=== PATIENT | male | born 1950 | race Caucasian/White ===

== ENCOUNTER → 2018-05-09 | Outpatient (CLI) | payer MEDICARE ==
[~2018-05-09] MED LIST: ALL300 PO; ENAL20TA99 PO; FAMO-122 PO; GEM600 PO; LABE100T28 PO; OMEP40CA45 PO
[2018-05-09 08:31] LABS: PLATELET COUNT, AUTOMATED 193 K/uL (150-450)
== END ==
LOC: LAB 07:55
PROVIDERS: ATTEND Internal Medicine Nephrology
DX: N18.3 Chronic kidney disease, stage 3 (moderate) (principal); I10 Essential (primary) hypertension
CPT/HCPCS: 36415; 82040; 82310; 82374; 82435; 82565; 82570; 82947; 84100; 84132; 84156; 84295; 84520; 85025

== ENCOUNTER → 2018-06-13 | Outpatient (CLI) | payer MEDICARE ==
--- NOTE | 2018-06-13 16:06 | RADIOLOGY IMAGING REPORT ---
FACILITY: [facility] PATIENT NAME: Oscar Vicente : 1950 MR: [id number] V: [id number] EXAM DATE: ORDERING PHYSICIAN: CHLOE PAINTER TECHNOLOGIST: Location: [facility] [place] Patient: Oscar Vicente : 1950 Visit/Account:[id number] Date of Sevice: 06/13/2018 EXAMINATION: Renal ultrasound 06/13/2018 1:30 PM HISTORY: Incomplete bladder emptying. Chronic kidney disease. COMPARISON STUDIES: MR abdomen 10/20/2013 FINDINGS: Kidneys: Right kidney- 8.6 x 4.4 x 5.9 cm, normal parenchymal thickness and echogenicity. Left kidney- 9.4 x 5.1 x 6.0 cm, normal parenchymal thickness and echogenicity. There is exophytic c oncave prominence along the cortex in the lower pole measuring 2.2 x 2.3 x 1.9 cm. This is not an an echoic cyst. This appears to be a change in contour since the previous MR although it did have mild benign-appearing cortical lobulation in the lower pole on the MR. Uniform and symmetric blood flow in each kidney by Doppler ultrasound. Hydronephrosis: none Bladder: Trabeculated bladder wall. Bladder floor is elevated by the prostate which measures 4.9 x 5 .6 x 4.9 cm. Prevoid bladder volume is 507 mL. Postvoid bladder volume 473 mL. Abdominal aorta and IVC: Patent by Doppler ultrasound IMPRESSION: 1. Enlarged prostate elevates the bladder floor with trabeculation of the bladder wall. The bladder does not empty substantially with postvoid imaging. 2. Potential exophytic mass in the lower pole of the left kidney. MR would be the best modality to define this more thoroughly. Report Dictated By: Zana Damon MD at 06/13/2018 3:51 PM Report E-Signed By: Zana Damon MD at 06/13/2018 4:01 PM WSN:[email or web address]
== END ==
LOC: US 02:44
PROVIDERS: ATTEND Urology
DX: N40.1 Benign prostatic hyperplasia with lower urinary tract symptoms (principal); R33.8 Other retention of urine; N18.9 Chronic kidney disease, unspecified
CPT/HCPCS: 76705

== ENCOUNTER → 2018-06-23 | Outpatient (CLI) | payer MEDICARE ==
[~2018-06-23] MED LIST changes: +GADOBENATE 529MG/1ML 15ML VIAL IVP ONE; +NS(*) 0.9% 50 ML BAG 50 ML ONE
--- NOTE | 2018-06-23 16:15 | RADIOLOGY IMAGING REPORT ---
FACILITY: [facility] PATIENT NAME: Oscar Vicente : 1950 MR: [id number] V: [id number] EXAM DATE: ORDERING PHYSICIAN: CHLOE PAINTER TECHNOLOGIST: Location: [facility] - [place] Patient: Oscar Vicente : 1950 Visit/Account:[id number] Date of Sevice: 06/23/2018 MR ABDOMEN W & W/O CON HISTORY: Left lower pole renal mass ADDITIONAL HISTORY: None. TECHNIQUE: TECHNIQUE: Multiplanar multisequence magnetic resonance imaging of the abdomen with and without intravenous contrast. CONTRAST: 15 mL of MultiHance COMPARISON: MR the abdomen October 20, 2013 and renal ultrasound June 13, 2018 FINDINGS: Visualized lung bases: Grossly unremarkable. Liver: Three small nonenhancing T2 hyperintense lesions in the right lobe of the liver have remained stable Gallbladder: Negative. Bile ducts: Nondistended and unremarkable. Spleen: Negative. Adrenal glands: Negative. Pancreas: Previously noted tiny cystic structures in the uncinate process the pancreas appear much le ss prominent. The 9 mm cystic structure projecting from the tail the pancreas which appears less pro minent now measuring 7 mm with no associated contrast enhancement. Kidneys: There bilateral renal cysts present the largest on the right is in the anterior upper pole m easuring 8 mm in diameter. Along the lateral lower pole of the left kidney there is a 1.8 x 1.9 x 2. 1 cm heterogeneous mass lesion that corresponds to the solid appearing mass on the recent ultrasound. This was not present on the prior MR. This mass appears to contain a central cystic nonenhancing p ortion although there is an irregular enhancing rim in a cystic neoplasm is of concern. There is mil d to moderate perinephric stranding bilaterally Vessels/spaces/nodes: No bulky adenopathy or ascities. Visualized GI: Grossly unremarkable. Bones/soft tissues: Unremarkable. IMPRESSION: There is a complex mass lower pole of the left kidney which may represent a cystic neoplasm. Follow- up recommended Bilateral renal cysts Previously noted tiny cystic structures in the uncinate process of the pancreas appear much less prom inent 9 mm cystic structure previously projecting from the tail the pancreas appears much less prominent wi th no associated contrast enhancement Nonenhancing T2 hyperintense lesions right lobe of the liver have remained stable Report Dictated By: Bibi Casas MD at 06/23/2018 3:35 PM Report E-Signed By: Bibi Casas MD at 06/23/2018 4:04 PM WSN:[id number]
== END ==
LOC: MRI 00:47
PROVIDERS: ATTEND Urology
DX: N28.89 Other specified disorders of kidney and ureter (principal)
CPT/HCPCS: 74183; A9577; J7050

== ENCOUNTER 2018-10-24 16:42 | Inpatient (IN) | payer MEDICARE ==
[2018-10-24] VITALS (17 sets, daily range): BP systolic 91–111; BP diastolic 53–68
[~2018-10-24] VITALS: Ht 177.8 cm; Wt 76.4 kg
[~2018-10-24 16:42] MED LIST changes: -GADOBENATE 529MG/1ML 15ML VIAL IVP ONE; -NS(*) 0.9% 50 ML BAG 50 ML ONE
[2018-10-24] MEDS ORDERED: OMEG-11 PO (16:53)
[2018-10-24] MEDS ORDERED: ASPI-1471 PO (16:53)
[2018-10-24] MEDS ORDERED: [UNRECOGNIZED DRUG - OTHER] (16:53)
--- NOTE | 2018-10-24 16:55 | ER Report ---
History and Physical Time Seen By MD: 16:51 Hx. of Stated Complaint: Decreased urine output (JOE MAYO) HPI/ROS CHIEF COMPLAINT: Decreased urine output HISTORY OF PRESENT ILLNESS: 68 year old male presents to ED for decreased urine output since Wednesday. Patient has a hx of cancerous lesions in his bilateral kidneys that were removed on September 02, 2018. Reports the surgeon said he had a "clean bill of health" after the surgery. However, he also has an enlarged prostate. He has been having to self-cath for 1.5 weeks. He is following Dr. Brice for this and is to have surgery soon. Patient reports that Wednesday he started to notice a decrease in urine output with blood in his urine and stool. Reports nausea, dry heaves, fever, chills, fatigue, and poor appetite. REVIEW OF SYSTEMS: Constitutional: Reports fevers, chills, decreased appetite, weakness. Respiratory: No cough, no dyspnea. Cardiovascular: No chest pain, no palpitations. Genitourinary: Reports decreased urinary output with blood in the urine. Gastrointestinal: Reports nausea, dry heaves, and lower abdominal pain. Reports blood in the stool. Musculoskeletal: No back pain. (JOE MAYO) Allergies: Coded Allergies: No Known Drug Allergies (Verified , 10/18/13) Home Meds Reported Medications [Leutine] No Conflict Check 10/24/18 [place]-3 Fatty Acids/Fish Oil (FISH OIL 1,000 MG CAPSULE) 1 Each Capsule, 1 EACH PO, CAPSULE 10/24/18 Aspirin (ASPIR 81) 81 Mg Tablet.dr, 81 MG PO QDAY, TAB 10/24/18 Famotidine (Pepcid Ac) 20 Mg Tablet, 20 MG PO PRN, 0 Refills 01/14/09 Gemfibrozil (Lopid) 600 Mg Tab, 600 MG PO DAILY, 0 Refills 01/14/09 Allopurinol (Zyloprim) 300 Mg Tab, 300 MG PO QDAY, 0 Refills 01/14/09 Labetalol Hcl (Labetalol Hcl) 100 Mg Tablet, 100 MG PO BID, 0 Refills 01/14/09 Enalapril Maleate (Enalapril Maleate) 20 Mg Tablet, 20 MG PO BID, 0 Refills 01/14/09 Discontinued Reported Medications Omeprazole (Prilosec) 40 Mg Capsule., 40 MG PO DAILY, 0 Refills 01/14/09 Past Medical/Surgical History Past medical hx of HTN, hypercholesterolemia, gout, GERD, kidney malignancy, enlarged prostate Past surgical hx of removal of malignancy on bilateral kidneys on September 02, 2018. (JOE MAYO) Reviewed Nurses Notes: Yes (JOE MAYO) Constitutional Vital Sign - Last 24 Hours 10/24/18 16:53 Temp 99.0 Pulse 97 Resp 18 B/P (MAP) 71/49 Pulse Ox 95 O2 Delivery Room Air (LAURIE RING MD) Physical Exam General Appearance: The patient is alert, has no immediate need for airway protection and no current signs of toxicity. Eyes: Pupils equal and round no injection. Respiratory: Chest is non tender. Lungs coarse in left upper lobe. Clear through the rest of the lung merino. Cardiac: regular rate and rhythm Gastrointestinal: Abdomen tender to palpation in pelvic area and epigastric area. Abdomen is soft, no masses, bowel hypoactive. No CVA tenderness. Musculoskeletal: Neck: Neck is supple and non tender. Extremities have full range of motion and are non tender. Skin: No rashes or lesions. DIFFERENTIAL DIAGNOSIS: After history and physical exam differential diagnosis was considered for UTI, pyelonephritis, sepsis, pneumonia, malignancy. (JOE MAYO) Medical Decision Making Data Points Result Diagram: 10/24/18 1700 10/24/18 1700 Laboratory Hematology Test 10/24/18 17:00 10/24/18 17:31 Red Blood Count 4.38 M/uL (4.00-5.60) Mean Corpuscular Volume 81.3 fL (80.0-96.0) Mean Corpuscular Hemoglobin 28.1 pg (26.0-33.0) Mean Corpuscular Hemoglobin Concent 34.5 g/dL (32.0-36.0) Red Cell Distribution Width 15.1 % (11.5-14.5) Mean Platelet Volume 9.6 fL (7.2-11.1) Neutrophils (%) (Auto) 90.1 % (39.4-72.5) Lymphocytes (%) (Auto) 3.8 % (17.6-49.6) Monocytes (%) (Auto) 5.5 % (4.1-12.4) Eosinophils (%) (Auto) 0.1 % (0.4-6.7) Basophils (%) (Auto) 0.5 % (0.3-1.4) Nucleated RBC Relative Count (auto) 0.0 /100WBC Neutrophils # (Auto) 11.9 K/uL (2.0-7.4) Lymphocytes # (Auto) 0.5 K/uL (1.3-3.6) Monocytes # (Auto) 0.7 K/uL (0.3-1.0) Eosinophils # (Auto) 0.0 K/uL (0.0-0.5) Basophils # (Auto) 0.1 K/uL (0.0-0.1) Nucleated RBC Absolute Count (auto) 0.00 K/uL Sodium Level 136 mmol/L (137-145) Potassium Level 5.2 mmol/L (3.5-5.0) Chloride Level 102 mmol/L (98-107) Carbon Dioxide Level 15 mmol/L (22-30) Blood Urea Nitrogen 104 mg/dl (9-21) Creatinine 4.50 mg/dl (0.66-1.25) Glomerular Filtration Rate Calc 13.1 Random Glucose 193 mg/dl (75-110) Lactate 2.5 mmol/L (0.7-2.1) Calcium Level 9.4 mg/dl (8.4-10.2) Total Bilirubin 1.6 mg/dl (0.2-1.3) Aspartate Amino Transf (AST/SGOT) 34 U/L (0-35) Alanine Aminotransferase (ALT/SGPT) 40 U/L (0-56) Alkaline Phosphatase 138 U/L (0-126) Troponin I < 0.012 ng/ml Total Protein 6.9 g/dl (6.3-8.2) Albumin 4.1 g/dl (3.5-5.0) Amylase Level 47 U/L (0-110) Lipase 17 U/L (23-300) Urine Color [place]ra Urine Clarity Cloudy Urine pH 5.0 pH (4.8-9.5) Urine Specific [place] 1.012 Urine Protein 500 mg/dL (NEGATIVE) Urine Glucose (UA) Negative mg/dL (NEGATIVE) Urine Ketones Negative mg/dL (NEGATIVE) Urine Blood Large (NEGATIVE) Urine Nitrite Negative (NEGATIVE) Urine Bilirubin Negative (NEGATIVE) Urine Urobilinogen Negative mg/dL (0.2-1.9) Urine Leukocyte Esterase Moderate (NEGATIVE) Urine RBC 44 /HPF (0-2/HPF) Urine WBC 413 /HPF (0-5/HPF) Urine WBC Clumps Many /HPF Urine Squamous Epithelial Cells None /LPF (NONE-FEW) Urine Bacteria Moderate /HPF (NONE-FEW) Urine Mucus None /HPF (NONE-FEW) Urine Yeast (Budding) Few /HPF Stool Occult Blood (IFOB) Negative (NEGATIVE) Chemistry Test 10/24/18 17:00 10/24/18 17:31 White Blood Count 13.2 k/uL (4.5-11.0) Red Blood Count 4.38 M/uL (4.00-5.60) Hemoglobin 12.3 g/dL (14.0-18.0) Hematocrit 35.7 % (42.0-52.0) Mean Corpuscular Volume 81.3 fL (80.0-96.0) Mean Corpuscular Hemoglobin 28.1 pg (26.0-33.0) Mean Corpuscular Hemoglobin Concent 34.5 g/dL (32.0-36.0) Red Cell Distribution Width 15.1 % (11.5-14.5) Platelet Count 217 K/uL (150-450) Mean Platelet Volume 9.6 fL (7.2-11.1) Neutrophils (%) (Auto) 90.1 % (39.4-72.5) Lymphocytes (%) (Auto) 3.8 % (17.6-49.6) Monocytes (%) (Auto) 5.5 % (4.1-12.4) Eosinophils (%) (Auto) 0.1 % (0.4-6.7) Basophils (%) (Auto) 0.5 % (0.3-1.4) Nucleated RBC Relative Count (auto) 0.0 /100WBC Neutrophils # (Auto) 11.9 K/uL (2.0-7.4) Lymphocytes # (Auto) 0.5 K/uL (1.3-3.6) Monocytes # (Auto) 0.7 K/uL (0.3-1.0) Eosinophils # (Auto) 0.0 K/uL (0.0-0.5) Basophils # (Auto) 0.1 K/uL (0.0-0.1) Nucleated RBC Absolute Count (auto) 0.00 K/uL Glomerular Filtration Rate Calc 13.1 Lactate 2.5 mmol/L (0.7-2.1) Calcium Level 9.4 mg/dl (8.4-10.2) Total Bilirubin 1.6 mg/dl (0.2-1.3) Aspartate Amino Transf (AST/SGOT) 34 U/L (0-35) Alanine Aminotransferase (ALT/SGPT) 40 U/L (0-56) Alkaline Phosphatase 138 U/L (0-126) Troponin I < 0.012 ng/ml Total Protein 6.9 g/dl (6.3-8.2) Albumin 4.1 g/dl (3.5-5.0) Amylase Level 47 U/L (0-110) Lipase 17 U/L (23-300) Urine Color Sa[place]ra Urine Clarity Cloudy Urine pH 5.0 pH (4.8-9.5) Urine Specific [place] 1.012 Urine Protein 500 mg/dL (NEGATIVE) Urine Glucose (UA) Negative mg/dL (NEGATIVE) Urine Ketones Negative mg/dL (NEGATIVE) Urine Blood Large (NEGATIVE) Urine Nitrite Negative (NEGATIVE) Urine Bilirubin Negative (NEGATIVE) Urine Urobilinogen Negative mg/dL (0.2-1.9) Urine Leukocyte Esterase Moderate (NEGATIVE) Urine RBC 44 /HPF (0-2/HPF) Urine WBC 413 /HPF (0-5/HPF) Urine WBC Clumps Many /HPF Urine Squamous Epithelial Cells None /LPF (NONE-FEW) Urine Bacteria Moderate /HPF (NONE-FEW) Urine Mucus None /HPF (NONE-FEW) Urine Yeast (Budding) Few /HPF Stool Occult Blood (IFOB) Negative (NEGATIVE) Urinalysis Test 10/24/18 17:31 Urine Color Saundra Urine Clarity Cloudy Urine pH 5.0 pH (4.8-9.5) Urine Specific [place] 1.012 Urine Protein 500 mg/dL (NEGATIVE) Urine Glucose (UA) Negative mg/dL (NEGATIVE) Urine Ketones Negative mg/dL (NEGATIVE) Urine Blood Large (NEGATIVE) Urine Nitrite Negative (NEGATIVE) Urine Bilirubin Negative (NEGATIVE) Urine Urobilinogen Negative mg/dL (0.2-1.9) Urine Leukocyte Esterase Moderate (NEGATIVE) Urine RBC 44 /HPF (0-2/HPF) Urine WBC 413 /HPF (0-5/HPF) Urine WBC Clumps Many /HPF Urine Squamous Epithelial Cells None /LPF (NONE-FEW) Urine Bacteria Moderate /HPF (NONE-FEW) Urine Mucus None /HPF (NONE-FEW) Urine Yeast (Budding) Few /HPF (LAURIE RING MD) EKG/Imaging EKG Interpretation 12 lead EKG: Rhythm: normal sinus rhythm [place]: normal QRS: normal ST segments: normal Monitor Interpretation: Normal Sinus Rhythm (JOE MAYO) ED Course/Re-evaluation ED Course Upon arrival to the ED, patient admitted to an exam room, hx and physical obtained, differentials considered. Patient presents to ED for decreased urine output since Wednesday. Patient has a hx of cancerous lesions in his bilateral kidneys that were removed on September 02, 2018. Reports the surgeon said he had a "clean bill of health" after the surgery. However, he also has an enlarged prostate. He has been having to self-cath for 1.5 weeks. He is following Dr. Brice for this and is to have surgery soon. Patient reports that Wednesday he started to notice a decrease in urine output with blood in his urine and stool. Reports associated symptoms of nausea, dry heaves, fever, chills, fatigue, weakness, and poor appetite. On exam, patient appears weak, fatigue, and diaphoretic. BP 70s/40s. Heart rate and rhythm regular. His heart rate is below 100, however, he is on labetolol and did take this medication this morning. Lungs coarse in left upper lobe, but clear through the rest of the merino. Patient has pain with palpation to pelvic area; no CVA tenderness. IV started, Craig cath started. 100mls NS infused. CBC, CMP, UA with culture, troponin, EKG, chest x-ray, lactate, amylase, lipase, and blood cultures ordered. H&H was 4.38 and 12.3. A type and screen was ordered. His last hemoglobin drawn at [facility] in May was 5.8. Will hold on blood products at this time. WBC elevated at 13.2 with left shift- neutrophils at 90.1%. Creatinine critically elevated at 4.5 with BUN at 104 and GFR at 13. UA showed moderate leukocytes, 413 WBC, WBC clumps, moderate bacteria, few yeast, and 44 RBC. Hospitalist, Dr. Rob, was consulted for admission. Dr. Rob accepted admission to the ICU. 100mg hydrocortisone given IV and 2 grams rocephin given IV. After NS infused, 2 L of LR given through IV with not much increase in blood pressure. Systolic BP sacha to 90's for a short amount of time with the first bag of LR, then dropped back to 80's/40's. Dr. Ring consulted for placement of central line to monitor blood pressure. Central line place by Dr. Ring. Procedure: Central line placement. After verbal informed consent from patient; with the risks explained to be bleeding, infection, and collapsed lung; maximal sterile barrier technique was uses including cap, gown, sterile gloves, large sheet, hand washing and chlorhexidine prep. The area anesthetized with 1% lidocaine. The right internal jugular vein was punctured with a 19 gauge finder needle, then a wire introducer was placed, a 7 Lithuanian triple lumen was placed using Seldinger technique. There were no complications. Blood return low pressure, dark blood. Patient tolerated procedure well. CXR results: Appropriate line placement, and no pneumothorax. Xray was interpreted by myself. Radiologist interpretation is pending. The procedure was performed by Dr. Ring. After central line was placed, levophed given IV to increase BP as fluid replacement did not elevate BP enough to keep it stable. Levophen brought BP up to 100's/60's. Last blood pressure upon leaving the ER was 94/54. Patient transferred to ICU. Decision to Disposition Date: Oct 24, 2018 Decision to Disposition Time: 18:30 (JOE MAYO) Procedure Procedure: Central line placement. After written informed consent from patient and ; with the risks explained to be bleeding, infection, and collapsed lung; maximal sterile barrier technique was uses including cap, gown, sterile gloves, large sheet, hand washing and chlorhexidine prep. The area anesthetized with 1% lidocaine. The right internal jugular vein was punctured with a 19 gauge finder needle, then a wire introducer was placed, a 7 Lithuanian triple lumen was placed using Seldinger technique. There were no complications. Blood return low pressure, dark blood. Patient tolerated procedure well. CXR results: Appropriate line placement, and no pneumothorax. Xray was interpreted by myself. Radiologist interpretation is pending. The procedure was performed by myself. (LAURIE RING MD) Depart Departure Latest Vital Signs Vital Signs Date Time Temp Pulse Resp B/P (MAP) Pulse Ox O2 Delivery O2 Flow Rate FiO2 10/24/18 16:53 99.0 97 18 71/49 95 Room Air (LAURIE RING MD) Impression: Primary Impression: Urinary tract infection Additional Impression: Sepsis Condition: Stable Disposition: Admitted from ER Referrals: JAJA YUEN (PCP) Problem Qualifiers Primary Impression: Urinary tract infection Urinary tract infection type: site unspecified Hematuria presence: with hematuria Qualified Codes: N39.0 - Urinary tract infection, site not specified; R31.9 - Hematuria, unspecified Additional Impression: Sepsis Sepsis type: sepsis due to unspecified organism Qualified Codes: A41.9 - Sepsis, unspecified organism JOE MAYO Oct 24, 2018 16:55 LAURIE RING MD Oct 24, 2018 19:18
[2018-10-24] MEDS ORDERED: NS(*) 0.9% 1000 ML BAG 1,000 ML IV ONE (17:10)
[2018-10-24] MEDS ORDERED: LIDOCAINE 2% 200MG/10ML UROJET ONE (17:19)
--- NOTE | 2018-10-24 17:19 | EKG ---
FACILITY: [facility] PATIENT NAME: AUGIE FUENTES : [id number] MR: [id number] V: [id number] EXAM DATE: ORDERING PHYSICIAN: JOE MAYO TECHNOLOGIST: SLOAN Rice Reason : WEAKNESS Blood Pressure : / mmHG Vent. Rate : 090 BPM Atrial Rate : 090 BPM P-R Int : 182 ms QRS Dur : 094 ms QT Int : 366 ms P-R-T Axes : 060 048 052 degrees QTc Int : 447 ms Normal sinus rhythm Normal ECG No previous ECGs available Confirmed by STEPHY HUDDLESTON ([id number]) on 10/25/2018 6:24:52 AM Referred By: MARIA ESTHER Confirmed By:STEPHY HUDDLESTON
[2018-10-24] MEDS ORDERED: LR(*) 1000 ML BAG 2,585.49 ML IV ONE (17:20)
[2018-10-24 17:26] LABS: PLATELET COUNT, AUTOMATED 217 K/uL (150-450)
[2018-10-24] MEDS ORDERED: HYDROCORTISONE 100 MG/2 ML IVP ONE (17:40)
[2018-10-24] MEDS ORDERED: cefTRIAXone 2 GM VIAL IVP ONE (17:40)
[2018-10-24] MEDS ORDERED: LR(*) 1000 ML BAG 1,000 ML ONE (18:03)
[2018-10-24] MEDS ORDERED: NOREPINE BITAR* 4 MG/4 ML AMP 4 MG in D5W(*) 250 ML BAG 246 ML IV ONE (18:50)
[2018-10-24] MEDS ORDERED: LEVOPHED KIT (*) 1 IVSOL 1 KIT IV ONE (19:08)
[2018-10-24] MEDS ORDERED: LR(*) 1000 ML BAG 1,000 ML IV PRN (19:30)
[2018-10-24] MEDS: NS(*) 0.9% 1000 ML BAG 1,000 ML IV PRN (20:15)
--- NOTE | 2018-10-24 20:22 | RADIOLOGY IMAGING REPORT ---
FACILITY: [facility] PATIENT NAME: Oscar Vicente : 1950 MR: [id number] V: [id number] EXAM DATE: ORDERING PHYSICIAN: JOE MAYO TECHNOLOGIST: Location: [facility] - [place] Patient: Oscar Vicente : 1950 Visit/Account:[id number] Date of Sevice: 10/24/2018 Technique: CHEST SINGLE AP HISTORY: central line placement Comparison studies: None FINDINGS: Right-sided IJ central venous catheter tip overlies the distal SVC. No pneumothorax. Nodula r opacity overlies the right midlung likely representing a nipple shadow. No acute airspace consolida tion. Atherosclerotic changes are seen within the thoracic aorta. The cardiac silhouette is unremarka ble. IMPRESSION: 1. Right-sided central venous catheter tip overlying the distal SVC. No pneumothorax. Report Dictated By: Stephen Bradshaw DO at 10/24/2018 8:14 PM Report E-Signed By: Stephen Bradshaw DO at 10/24/2018 8:15 PM WSN:[id number]
[2018-10-24] MEDS ORDERED: INFLUENZA VIRUS VAC 0.5ML SYR IM ONLY ONE (20:25)
[2018-10-24] MEDS ORDERED: ACETAMINOPHEN 500 MG TAB PO PRN (20:25)
[2018-10-24] MEDS ORDERED: NOREPINE BITAR* 4 MG/4 ML AMP 4 MG in D5W(*) 250 ML BAG 246 ML IV PRN (20:25)
--- NOTE | 2018-10-24 20:33 | History & Physical ---
History of Present Illness Chief Complaint Weakness and malaise History of Present Illness This patient presented to the emergency room complaining of weakness and malaise over the 24-48hrs. He was recently diagnosed with BPH, and is scheduled for prostate surgery in the near future. He has also recently began straight catheterizing himself. History Problems: (1) DMII (diabetes mellitus, type 2) (2) BPH (benign prostatic hyperplasia) (3) Essential hypertension Home Meds Reported Medications [Leutine] No Conflict Check 10/24/18 [place]-3 Fatty Acids/Fish Oil (FISH OIL 1,000 MG CAPSULE) 1 Each Capsule, 1 EACH PO, CAPSULE 10/24/18 Aspirin (ASPIR 81) 81 Mg Tablet.dr, 81 MG PO QDAY, TAB 10/24/18 Famotidine (Pepcid Ac) 20 Mg Tablet, 20 MG PO PRN, 0 Refills 01/14/09 Gemfibrozil (Lopid) 600 Mg Tab, 600 MG PO DAILY, 0 Refills 01/14/09 Allopurinol (Zyloprim) 300 Mg Tab, 300 MG PO QDAY, 0 Refills 01/14/09 Labetalol Hcl (Labetalol Hcl) 100 Mg Tablet, 100 MG PO BID, 0 Refills 01/14/09 Enalapril Maleate (Enalapril Maleate) 20 Mg Tablet, 20 MG PO BID, 0 Refills 01/14/09 Discontinued Reported Medications Omeprazole (Prilosec) 40 Mg Capsule.dr, 40 MG PO DAILY, 0 Refills 01/14/09 Allergies: Coded Allergies: No Known Drug Allergies (Verified , 10/18/13) Review of Systems All Systems Reviewed/Normal: Yes, Except as Noted Neurological: Weakness Exam Vital Signs Vital Signs Date Time Temp Pulse Resp B/P (MAP) Pulse Ox O2 Delivery O2 Flow Rate FiO2 10/24/18 16:53 99.0 97 18 71/49 95 Room Air Neuro: No Gross deficits Eyes: PERRLA Cardiovascular: Regular Rate and Rhythm Respiratory: Clear to Auscultation GI: Abd Soft and Non-Tender Extremities: No Edema Integumentary: No Cyanosis Medical Decision Making Data Points Result Diagram: 10/24/18 1700 10/24/18 1700 Assessment and Plan Problems: (1) Urinary tract infection Status: Acute Assessment & Plan: He has been started on empiric treatment with ceftriaxone. A urine culture is pending. (2) Septic shock Assessment & Plan: He does have hypotension and an elevated lactate level. He received a fluid bolus and was also started on a norepinephrine infusion. A repeat lactate level is pending. (3) BPH (benign prostatic hyperplasia) Assessment & Plan: He is scheduled for prostate surgery in [facility]. He is seen by Dr. Brice locally. (4) Acute renal failure Assessment & Plan: Likely secondary to obstruction. He has been started on IV fluids and a Craig catheter is now in place. (5) DMII (diabetes mellitus, type 2) Assessment & Plan: He has been placed on sliding scale level #2. (6) Essential hypertension Assessment & Plan: He is on chronic treatment with enalapril and labetalol, which are both on hold secondary to hypotension. Copies to: CHLOE BRICE MD ; Venous Thromboembolism Antithrombotics Is Pt On Any Antithrombotics?: No Exam Sepsis Risk: Possible Severe Sepsis Risk Problem Qualifiers (1) Urinary tract infection: Urinary tract infection type: site unspecified Hematuria presence: with hematuria Qualified Codes: N39.0 - Urinary tract infection, site not specified; R31.9 - Hematuria, unspecified STEPHY HUDDLESTON DO Oct 24, 2018 20:33
[2018-10-24] MEDS: INSULIN HUM LISPRO 100 UN/ML 3 ML VIAL SUBQ PRN (21:10)
[2018-10-25] VITALS (95 sets, daily range): BP systolic 84–121; BP diastolic 50–74
[2018-10-25] MEDS ORDERED: D5W(*) 500 ML BAG 500 ML IV ONE (02:05)
[2018-10-25] MEDS ORDERED: NOREPINEPH BITAR 4 MG/4 ML AMP ONE (02:05)
[2018-10-25] MEDS: NS(*) 0.9% 1000 ML BAG 1,000 ML IV PRN ×3 (04:23→20:30)
[2018-10-25 05:21] LABS: PLATELET COUNT, AUTOMATED 158 K/uL (150-450)
[2018-10-25] MEDS ORDERED: NS(*) 0.9% 500 ML BAG 500 ML IV PRN (08:05)
--- NOTE | 2018-10-25 08:29 | Miscellaneous Provider Note ---
Miscellaneous Provider Note Note He reports he is overall feeling a bit better. He is having less abdominal pain and nausea. He is drinking liquids. He is still requiring Levophed at 4 mcg/min. Vital Signs Label Value Date Time Patient Temperature 99.1 degrees F 10/25/18 07 Temperature Source Oral 10/25/18 07 Pulse 81 10/25/18 07 Location Both Blood Pressure Assessment 104/56 (72) 10/25/18 07 Location Right Arm Source BP Device Respiratory Rate 13 bpm 10/25/18699 Bedside Pulse Oximetry 94 % 10/25/18 07 Item Value Date Time Oxygen Delivery Method Room Air 10/25/18 07 Hrt - RRR, no m/r/g Lungs - CTAB Abd - soft, non-distended, mild suprapubic tenderness, no peritoneal signs/guarding Item Value Date Time Neutrophils (%) (Auto) 89.3 % H 10/25/18 0506 Lymphocytes (%) (Auto) 4.7 % L 10/25/18 0506 Monocytes (%) (Auto) 6.0 % 10/25/18 0506 Eosinophils (%) (Auto) 0.0 % L 10/25/18 0506 Blood Urea Nitrogen 91 mg/dl H 10/25/18 0506 Creatinine 3.30 mg/dl H 10/25/18 0506 Total Bilirubin 0.7 mg/dl 10/25/18 0506 Aspartate Amino Transf (AST/SGOT) 28 U/L 10/25/18 0506 Alanine Aminotransferase (ALT/SGPT) 65 U/L H 10/25/18 0506 Alkaline Phosphatase 118 U/L 10/25/18 0506 Blood Urea Nitrogen 104 mg/dl H 10/24/18 1700 Creatinine 4.50 mg/dl *H 10/24/18 1700 Potassium Level 5.2 mmol/L H 10/24/18 1700 Total Bilirubin 1.6 mg/dl H 10/24/18 1700 Aspartate Amino Transf (AST/SGOT) 34 U/L 10/24/18 1700 Alanine Aminotransferase (ALT/SGPT) 40 U/L 10/24/18 1700 Alkaline Phosphatase 138 U/L H 10/24/18 1700 Troponin I < 0.012 ng/ml 10/24/18 1700 Amylase Level 47 U/L 10/24/18 1700 Lipase 17 U/L L 10/24/18 1700 Lactate 0.9 mmol/L 10/24/182016 Urine Squamous Epithelial Cells None /LPF 10/24/18 1731 Urine Bacteria Moderate /HPF H 10/24/18 1731 Urine Mucus None /HPF 10/24/18 1731 Urine RBC 44 /HPF 10/24/18 1731 Urine WBC 413 /HPF 10/24/18 1731 Urine WBC Clumps Many /HPF 10/24/18 1731 Urine Leukocyte Esterase Moderate H 10/24/18 1731 Stool Occult Blood (IFOB) Negative 10/24/18 1731 Blood Culture with GNR x2 Overall, improving, but still hypotensive off pressors. Continue Rocephin and Levophed. Adding Hydrocortisone IV. Continue IVF. Checking CVP's. Continue ICU care. LAM GOMEZ MD Oct 25, 2018 08:29
[2018-10-25] MEDS: HYDROCORTISONE 100 MG/2 ML IVP SCH ×2 (08:40→16:33)
[2018-10-25] MEDS: FAMOTIDINE 20 MG TAB PO SCH ×2 (08:40→20:30)
--- NOTE | 2018-10-25 08:59 | Antimicrobial Stewardship ---
Antimicrobial Stewardship Empiricly appropriate: Yes (Ceftriaxone) Significant PMH: Yes (HTN, HL, gout, GERD, s/p surgery 09/18 for kidney malignancy, BPH, self-caths at home) Support empiric regimen: Yes Comment Ceftriaxone 2g IV Q24H Approriate Cultures done: Yes (Blood Cx x 2 - 4/4 bottles growing GNRs, Urine Cx pending) Renal/Hepatic dosing: Yes (Scr = 3.3, Ceftriaxone not adjusted for renal function) Determine cumulative duration: Today is day 2 (10/25/18) Determine standard duration: 7-14 days Comment 68 yo M with a PMH of HTN, HL, gout, BPH, GERD, s/p surgery to remove kidney cancer on 09/18 who presented to the ED with decreased urine output, currently self cathing due to BPH (seeing Dr. Brice). Plan to have surgery on his prostate in the near future. Pt presented with complaints of fever, decreased urine output, weakness, malaise, and decreased appetite. Pt was hypotensive in the ED, central line placed and started on norepinephrine drip. Tmax 99 BP 70/40s HR 90s (on labetolol-home med) WBC 13.2 -->13.7 Neuts 90% (no bands reported) Lactate 2.5 -->0.9 EKG wnl Scr 4.5-->3.3 K 5.2-->4.8 Blood Cx x 2 --> 4/4 bottles growing GNR, culture and sens pending Urine Cx pending UA showed bacteria, WBC (clumps), Leuk est (+), squam epis (-) Plan to continue Ceftriaxone 2g IV q24h, await culture results, today is day 2 of therapy. Pt continues on norepinephrine drip and fluids at 125 ml/hr. Will watch closely and de-escalate therapy as appropriate. Brenda Dave, PharmD, BCOP BRENDA DAVE Oct 25, 2018 08:59
[2018-10-25] MEDS: INSULIN HUM LISPRO 100 UN/ML 3 ML VIAL SUBQ PRN ×3 (11:52→20:33)
--- NOTE | 2018-10-25 14:38 | CONSULTATION ---
EVENT DATE: October 25, 2018 REASON FOR CONSULTATION Urosepsis. HISTORY OF PRESENT ILLNESS Patient is a 68-year old white male who presented to the emergency room yesterday with a several day history of increasing weakness and malaise and was found to have urosepsis. His urine culture is currently pending as well as blood cultures. He has been started on broad-spectrum antibiotics and is currently on the ICU weaning off pressors. His creatinine has elevated up from baseline and now at 4.5. He has a baseline creatinine approximately 1.2 to 1.5. Of note, the patient has had a history of BPH with elevated post-void residuals for some time and has recently been started on CIC by Dr. Mckeon in [facility] in anticipation for a bipolar transurethral resection of the prostate, which is currently scheduled for November 21. The patient is currently in the ICU with Craig catheter draining clear urine. The patient reports no difficulty in doing his CIC, which has recently been started. He denies gross hematuria, trouble placing the catheter, flank pain or urethral discharge. PAST MEDICAL HISTORY 1. Diabetes type 2. 2. Chronic kidney disease. 3. BPH with elevated post-void residuals. 4. Hypertension. 5. Gastroesophageal reflux disease. PAST SURGICAL HISTORY 1. Tonsillectomy. 2. Left partial nephrectomy, August 2018, for clear cell renal cell carcinoma, stage pT1 Nx Mx. CURRENT MEDICATIONS 1. Allopurinol. 2. Aspirin. 3. Pepcid. 4. Gemfibrozil. 5. Labetalol. 6. Multivitamins. ALLERGIES No known drug allergies. SOCIAL HISTORY Patient lives in [place], [place]. He is retired. REVIEW OF SYSTEMS Patient denies shortness of breath, productive cough, chest pain, chronic headaches, liver disease or bleeding disorder. PHYSICAL EXAMINATION GENERAL: Well-developed, well-nourished white male in no acute distress. HEENT: Normocephalic, atraumatic. CHEST: Clear to auscultation bilaterally. CARDIOVASCULAR: Regular rate and rhythm. : Normal appearing phallus. Craig catheter is in place, draining clear urine. Testes are descended bilaterally without evidence of swelling or masses. Digital rectal exam is deferred. EXTREMITIES: No clubbing, cyanosis or edema. NEUROLOGIC: Nonfocal. IMPRESSION A 68-year old white male with a long history of BPH with elevated residuals. He was recently started on CIC in anticipation for bipolar TURP planned next month. He is now being treated in the ICU for presumed urosepsis. His urine culture is currently pending. His Craig catheter is in place, draining clear urine. RECOMMENDATIONS We will continue with Craig catheter until he is symptomatically improved and ambulating on oral antibiotics. At that time, I would remove his catheter and have him resume his clean intermittent catheterization routine. I also recommend that he be treated for the next four weeks with cultures of specific antibiotics for this recent episode and follow up with Dr. Mckeon on November 21 for his planned bipolar transurethral resection of prostate. THOMAS
--- NOTE | 2018-10-25 15:54 | Medical Nutrition Therapy ---
Nutrition Anthropometrics Height (Inches): 70.00 Height (Calculated Centimeters: 177.020997 Weight (Pounds): 168 Weight (Calculated Kilograms): 76.430 BMI: 24.2 Hx Weight Loss: Yes (Lost ~21 lbs since 09/02/18) Cheikh Nutrition Score: Adequate Cheikh Nutrition Risk Score: 20 Dietary Referral Nutrition Risk Factors: Nutrition Risk Comment: Physical Findings Physical Appearance: WNL Skin Appearance Skin Appearance: Edema Edema Location Modifier: Edema Location: Type of Edema: Degree of Edema: Gastrointestinal Symptoms GI Symtoms: Appetite Changes Tube Present: Bowel Sounds: Recent Bowel Pattern: Stool Characteristics: Nutrition/Food History Poor Nutritional Diagnosis Nutritional Risk Acuity 1: No Appetite Past Medical History: HTN, Kidney Cancer Nutritional Acuity: 1-High Nutrition Diagnosis: Inadequate Food Intake Nutrition Etiology: Physiological Causes Nutrition Problem/Etiology/Sym: taste changes, loss of 11% body weight x 2 months Energy Requirement: 1995 (MSJ) Protein Requirement: 76 (1g/kg) Fluid Requirement: 1995 (1mL/kcal) Diet Type: Diabetic Nutrition Intervention: Encourage intake, Between meal supplement Diet Comment To RSA: Please allow pt to order Ensure Clear or Boost as needed. Nutrition Monitoring & Eval RD Patient Assessment Time: [address] Assessment Type: RD Assessment Patient Nutrition Acuity: 1-High Follow Up Date: Oct 28, 2018 Nutritional Comment: 10/25/18-Spoke with pt this am. Pt had severe wt loss following surgery 09/02/18. Lost 21 lbs (11% wt loss x 2 months). Reports taste changes, no appetite. Discussed trying bland foods, trying liquids such as Boost or Ensure Clear. Will continue to monitor intake tolerance to foods.KYLEE LOUIS Oct 25, 2018 15:54
[2018-10-25] MEDS ORDERED: FENO145T36 PO (16:23)
[2018-10-25] MEDS ORDERED: LABE100T2 PO (16:23)
[2018-10-25] MEDS ORDERED: ENAL1TAB35 PO (16:23)
[2018-10-25] MEDS: cefTRIAXone 2 GM VIAL IVP SCH (16:33)
[2018-10-26] VITALS (62 sets, daily range): BP systolic 82–133; BP diastolic 50–80
[2018-10-26] MEDS: HYDROCORTISONE 100 MG/2 ML IVP SCH ×3 (00:47→16:40)
[2018-10-26] MEDS: NS(*) 0.9% 1000 ML BAG 1,000 ML IV PRN ×3 (04:53→21:23)
[2018-10-26 05:32] LABS: PLATELET COUNT, AUTOMATED 128 K/uL (150-450)
[2018-10-26] MEDS: INSULIN HUM LISPRO 100 UN/ML 3 ML VIAL SUBQ PRN ×2 (09:03→16:40)
[2018-10-26] MEDS: FAMOTIDINE 20 MG TAB PO SCH ×2 (09:03→21:24)
--- NOTE | 2018-10-26 09:17 | Hospitalist Progress Note ---
Subjective Progress Notes Subjective This patient was admitted for urosepsis. He had no acute changes overnight. Patient Complains of: Cardiovascular: No: Chest Pain Respiratory: No: Shortness of Breath Physical Exam Vital Signs Date Time Temp Pulse Resp B/P (MAP) Pulse Ox O2 Delivery O2 Flow Rate FiO2 10/26/18 07:00 57 10/26/18 06:45 97.8 20 96/59 (71) 96 Room Air Intake and Output 10/26/18 07:01 Intake Total 4743 ml Output Total 3080 ml Balance 1663 ml Intake Oral 2290 ml IV Total 2453 ml Output Urine Total 3080 ml Cardiovascular: Regular Rate and Rhythm Respiratory: Clear to Auscultation Result Diagram: 10/26/18 0516 10/26/18 05 Monitor Interpretation: Normal Sinus Rhythm Assessment and Plan Problems: (1) Urinary tract infection Status: Acute Assessment & Plan: He was started on empiric treatment with ceftriaxone. Urine and blood cultures are growing Enterobacter. He will remain on IV ceftriaxone. (2) Septic shock Assessment & Plan: He does have hypotension and an elevated lactate level. He received a fluid bolus and was also started on a norepinephrine infusion. He luke s now weaned from vasopressor support. He is receiving hydrocortisone, which is being weaned down today. (3) BPH (benign prostatic hyperplasia) Assessment & Plan: He is scheduled for prostate surgery in [facility]. He is seen by Dr. Brice locally. He will discharge with the catheter in place and follow up with Dr. Brice. (4) Acute renal failure Assessment & Plan: Likely secondary to obstruction. He has been improving with a catheter in place and IV fluids. (5) DMII (diabetes mellitus, type 2) Assessment & Plan: He has been placed on sliding scale level #2. (6) Essential hypertension Assessment & Plan: He is on chronic treatment with enalapril and labetalol, which are both on hold secondary to hypotension. Exam Sepsis Risk: No Definite Risk Problem Qualifiers (1) Urinary tract infection: Urinary tract infection type: site unspecified Hematuria presence: with hematuria Qualified Codes: N39.0 - Urinary tract infection, site not specified; R31.9 - Hematuria, unspecified STEPHY HUDDLESTON DO Oct 26, 2018 09:17
[2018-10-26] MEDS: cefTRIAXone 2 GM VIAL IVP SCH (16:40)
[2018-10-27] MEDS: HYDROCORTISONE 100 MG/2 ML IVP SCH ×3 (01:22→20:54)
[2018-10-27 03:16] VITALS: BP 99/63
[2018-10-27] MEDS: NS(*) 0.9% 1000 ML BAG 1,000 ML IV PRN ×3 (05:23→22:01)
[2018-10-27 06:52] VITALS: BP 114/68
[2018-10-27] MEDS: FAMOTIDINE 20 MG TAB PO SCH ×2 (09:12→20:53)
[2018-10-27 11:30] VITALS: BP 110/61
[2018-10-27] MEDS: INSULIN HUM LISPRO 100 UN/ML 3 ML VIAL SUBQ PRN ×3 (11:40→20:46)
--- NOTE | 2018-10-27 13:13 | Hospitalist Progress Note ---
Subjective Progress Notes Subjective He reports feeling improved. Appetite is returning. Physical Exam Vital Signs Date Time Temp Pulse Resp B/P (MAP) Pulse Ox O2 Delivery O2 Flow Rate FiO2 10/27/18 11:30 98.2 64 20 110/61 (77) 96 Room Air Intake and Output 10/27/18 07:01 Intake Total 1693 ml Output Total 2115 ml Balance -422 ml Intake Oral 800 ml IV Total 893 ml Output Urine Total 2115 ml # Bowel Movements 1 General Appearance: Alert, Awake Cardiovascular: Regular Rate and Rhythm Respiratory: Clear to Auscultation GI: Soft and Non-Tender Extremities: Warm, Perfused Result Diagram: 10/26/18 0516 10/27/18 0524 Assessment and Plan Problems: (1) Urinary tract infection Status: Acute Assessment & Plan: He was started on empiric treatment with IV ceftriaxone. Urine and blood cultures are growing Enterobacter sensitive to the ceftriaxone. WBC count has normalized. Planning on 4 weeks of antibiotics. Should be able to transition to oral antibiotic soon. (2) Septic shock Assessment & Plan: He did have hypotension and an elevated lactate level. He was treated with IV fluids a norepinephrine infusion. He has been treated with IV antibiotics as noted above. He has now weaned from vasopressor support. He is receiving hydrocortisone, which is being weaned down. (3) BPH (benign prostatic hyperplasia) Assessment & Plan: He is seen by Dr. Brice locally. He will discharge with the catheter in place and follow up closely with Dr. Brice. (4) Acute renal failure Assessment & Plan: Likely secondary to obstruction/infection. He has been improving with a catheter in place and IV antibiotics/fluids. (5) DMII (diabetes mellitus, type 2) Assessment & Plan: He has been placed on sliding scale level #2. (6) Essential hypertension Assessment & Plan: He is on chronic treatment with enalapril and labetalol, which are both on hold. BPs have been in low normal range. Continue to monitor. Exam Sepsis Risk: No Definite Risk Problem Qualifiers (1) Urinary tract infection: Urinary tract infection type: site unspecified Hematuria presence: with hematuria Qualified Codes: N39.0 - Urinary tract infection, site not specified; R31.9 - Hematuria, unspecified CAPRI HEWITT MD Oct 27, 2018 13:13
[2018-10-27 15:26] VITALS: BP 108/63
[2018-10-27] MEDS: cefTRIAXone 2 GM VIAL IVP SCH (16:43)
[2018-10-27 19:04] VITALS: BP 116/73
[2018-10-28 04:42] VITALS: BP 100/62
[2018-10-28] MEDS: NS(*) 0.9% 1000 ML BAG 1,000 ML IV PRN (04:49)
[2018-10-28 06:33] LABS: PLATELET COUNT, AUTOMATED 82 K/uL (150-450)
[2018-10-28 06:57] VITALS: BP 108/66
[2018-10-28] MEDS: FAMOTIDINE 20 MG TAB PO SCH ×2 (07:58→20:46)
[2018-10-28] MEDS: HYDROCORTISONE 100 MG/2 ML IVP SCH ×2 (08:00→20:46)
--- NOTE | 2018-10-28 09:52 | Medical Nutrition Therapy ---
Nutrition Anthropometrics Height (Inches): 70.00 Height (Calculated Centimeters: [phone] Weight (Pounds): 168 Weight (Calculated Kilograms): 76.430 BMI: 24.2 Hx Weight Loss: Yes (Lost ~21 lbs since 09/02/18) Cheikh Nutrition Score: Adequate Cheikh Nutrition Risk Score: 18 Dietary Referral Nutrition Risk Factors: Nutrition Risk Comment: Physical Findings Physical Appearance: WNL Skin Appearance Skin Appearance: Edema Edema Location Modifier: Both Edema Location: Ankle Type of Edema: Degree of Edema: Gastrointestinal Symptoms GI Symtoms: Nausea Tube Present: Bowel Sounds: Recent Bowel Pattern: Stool Characteristics: Nutritional Diagnosis Nutritional Risk Acuity 2: Unintended Wt Loss >5%/mo (Per pt) Past Medical History: HTN, Kidney Cancer Nutritional Acuity: 2-Moderate Nutrition Diagnosis: Inadequate Food Intake Nutrition Etiology: Physiological Causes Nutrition Problem/Etiology/Sym: taste changes, loss of 11% body weight x 2 months Energy Requirement: 1995 (MSJ) Protein Requirement: 76 (1g/kg) Fluid Requirement: 1995 (1mL/kcal) Diet Type: Diabetic Nutrition Intervention: Cont diet as ordered, Encourage intake, Between meal supplement Additional Diet Restrictions: OFFER NUTR SUPPLMENT, PUT PROTEIN POWDER IN APPROPRIATE FOODS Nutrition Monitoring & Eval Nutrition Goals: Eat 75-100% Meal Nutrition Follow-Up: Fair Intake RD Patient Assessment Time: [address] Assessment Type: RD Assessment Patient Nutrition Acuity: 2-Moderate Follow Up Date: Oct 03, 2018 Nutritional Comment: 10/25/18-Spoke with pt this am. Pt had severe wt loss following surgery 09/02/18. Lost 21 lbs (11% wt loss x 2 months). Reports taste changes, no appetite. Discussed trying bland foods, trying liquids such as Boost or Ensure Clear. Will continue to monitor intake tolerance to foods.ADDY 10/28 Pt cont on diabetic diet. Intake average 67%. No nutritional supplment intake reported. Alb declined to 2. Will cont to offer nutritional supplment and will put protein powder in appropriate foods to increase protein intake. RBG ranign 121-228. BUN 51, creatinne 1.9. Will cont to monitor and encourage intake. CHRIS MORALES Oct 28, 2018 09:52
[2018-10-28] MEDS: INSULIN HUM LISPRO 100 UN/ML 3 ML VIAL SUBQ PRN (12:00)
[2018-10-28 12:11] VITALS: BP 124/73
--- NOTE | 2018-10-28 12:38 | Hospitalist Progress Note ---
Subjective Progress Notes Subjective He is still having episodes of nausea, but is eating some meals. Physical Exam Vital Signs Date Time Temp Pulse Resp B/P (MAP) Pulse Ox O2 Delivery O2 Flow Rate FiO2 10/28/18 12:11 97.6 68 20 124/73 (90) 94 Room Air Intake and Output 10/28/18 07:01 Intake Total 1730 ml Output Total 1850 ml Balance -120 ml Intake Oral 580 ml IV Total 1150 ml Output Urine Total 1850 ml # Bowel Movements 1 General Appearance: Alert, Awake, No Acute Distress GI: Soft and Non-Tender : No CVA Tenderness Result Diagram: 10/28/1853310/28/18533 Assessment and Plan Problems: (1) Urinary tract infection Status: Acute Assessment & Plan: He was started on empiric treatment with IV ceftriaxone. Urine and blood cultures are growing Enterobacter sensitive to the ceftriaxone. WBC count has normalized. Planning on 4 weeks of antibiotics. He will be switched to Bactrim today. Because of the interaction with ACEI, if he needs to go back on his BP meds, should substitute something else for the enalapril. (2) Septic shock Status: Resolved Assessment & Plan: He did have hypotension and an elevated lactate level. He was treated with IV fluids a norepinephrine infusion. He has been treated with IV antibiotics as noted above. He has now weaned from vasopressor support. He is receiving hydrocortisone, which will be weaned off tomorrow. (3) BPH (benign prostatic hyperplasia) Assessment & Plan: He is seen by Dr. Brice locally. He will discharge with the catheter in place and follow up closely with Dr. Brice. (4) Acute renal failure Assessment & Plan: Likely secondary to obstruction/infection and exacerbated by enalapril/HCTZ. He has been improving with a catheter in place and antibiotics/fluids. He is to be saline locked. Continue to follow. (5) DMII (diabetes mellitus, type 2) Assessment & Plan: He has been placed on sliding scale level #2. Glucose improving with weaning down of steroids (6) Essential hypertension Assessment & Plan: He is on chronic treatment with enalapril and labetalol, which are both on hold. BPs have been in low normal range. Continue to monitor. See above. Exam Sepsis Risk: No Definite Risk Problem Qualifiers (1) Urinary tract infection: Urinary tract infection type: site unspecified Hematuria presence: with hematuria Qualified Codes: N39.0 - Urinary tract infection, site not specified; R31.9 - Hematuria, unspecified LAM GOMEZ MD Oct 28, 2018 12:38
[2018-10-28 14:59] VITALS: BP 119/78
[2018-10-28 18:48] VITALS: BP 103/64
[2018-10-28] MEDS: TRIMETH/SULFA DS 160-800MG TAB PO SCH (20:46)
[2018-10-29 03:14] VITALS: BP 90/56
[2018-10-29 06:40] LABS: PLATELET COUNT, AUTOMATED 72 K/uL (150-450)
[2018-10-29] MEDS ORDERED: SULF1TAB24 PO (06:57)
[2018-10-29 07:35] VITALS: BP 101/69
--- NOTE | 2018-10-29 08:16 | Hospitalist Depart ---
Discharge Summary Reason for Hosp/Final Diag: (1) Septic shock Status: Resolved Hospital Course & Plan: He presented with decreased urine output, nausea, fever, chills, and fatigue. He did have hypotension and an elevated lactate level. He was treated with IV fluids, hydrocortisone and a norepinephrine infusion. He was weaned off the norepinephrine by the morning of 10/26. He has been treated with IV antibiotics as noted above. He has been weaned of hydrocortisone this morning. (2) Urinary tract infection Status: Acute Hospital Course & Plan: He was started on empiric treatment with IV ceftriaxone. Urine and blood cultures are growing Enterobacter sensitive to the ceftriaxone. WBC count has normalized. He is afebrile. Planning on 4 weeks of antibiotics. He was switched to Bactrim on 10/28. Because of the interaction with ACEI, if he needs to go back on his BP meds, should substitute something else for the enalapril/HCTZ. (3) BPH (benign prostatic hyperplasia) Hospital Course & Plan: He is seen by Dr. Brice locally. He will discharge with the catheter in place and follow up closely with Dr. Brice. (4) Acute renal failure Status: Acute Hospital Course & Plan: Likely secondary to obstruction/infection and exacerbated by enalapril/HCTZ. Enalapril/HCTZ is to be stopped until he is done with Bactrim (secondary to the hyperkalemia concerns) and likely he should be back to his baseline renal function before those are resumed. Aspirin has been held, also. He has been improving with a catheter in place and antibiotics /fluids. Continue to follow. CMP on 11/01. (5) Thrombocytopenia Status: Acute Hospital Course & Plan: Likely, related to illness. He has not received heparin or enoxaparin during this admission. He is to get a CBC on 11/01. (6) Hyperglycemia Status: Acute Hospital Course & Plan: Initially elevated secondary to illness and steroids. Glucose improving with weaning down of steroids. Now he is not requiring the sliding scale level #2 (i.e. glucose < 150). He will need routine diabetes screening as an outpatient because of increased risk after he has had some time to recover from this admission. (7) Scrotal edema Status: Acute Hospital Course & Plan: Secondary IVF and steroids. No erythema or pain on exam. Mild swelling but there appears to be a more focal collection of fluid in the most dependant part. He has been instructed to elevate it and go to the ER for signs of infection or worsening of swelling. (8) Essential hypertension Hospital Course & Plan: He is on chronic treatment with Enalapril/HCTZ and labetalol, which are both on hold. BPs have been in low normal range. He is to follow up with his PCP in 1-2 weeks to see if labetalol should be restarted. Enalapril/HCTZ not to be restarted until done with Bactrim and normalization of renal function. 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 Mckeon. No further treatment needed. Departure Weight (Pounds): 168 Weight (Ounces): 8.0 Result Diagram: 10/29/18 0510/29/18532 Item Value Date Time White Blood Count 13.2 k/uL H 10/24/18 1700 White Blood Count 13.7 k/uL H 10/25/18 0506 White Blood Count 10.9 k/uL 10/26/18 0516 White Blood Count 4.9 k/uL 10/28/18 0534 White Blood Count 6.4 k/uL 10/29/18 0533 Hemoglobin 9.8 g/dL L 10/29/18 0533 Hemoglobin 9.9 g/dL L 10/28/18 0534 Hemoglobin 10.6 g/dL L 10/26/18 0516 Hemoglobin 11.0 g/dL L 10/25/18 0506 Hemoglobin 12.3 g/dL L 10/24/18 1700 Platelet Count 217 K/uL 10/24/18 1700 Platelet Count 158 K/uL 10/25/18 0506 Platelet Count 128 K/uL L 10/26/18 0516 Platelet Count 82 K/uL L 10/28/18 0534 Platelet Count 72 K/uL L 10/29/18 0533 Amylase Level 47 U/L 10/24/18 1700 Lipase 17 U/L L 10/24/18 1700 Sodium Level 136 mmol/L L 10/24/18 1700 Potassium Level 5.2 mmol/L H 10/24/18 1700 Chloride Level 102 mmol/L 10/24/18 1700 Carbon Dioxide Level 15 mmol/L L 10/24/18 1700 Blood Urea Nitrogen 104 mg/dl H 10/24/18 1700 Creatinine 4.50 mg/dl *H 10/24/18 1700 Random Glucose 193 mg/dl H 10/24/18 1700 Lactate 2.5 mmol/L H 10/24/18 1700 Calcium Level 9.4 mg/dl 10/24/18 1700 Total Bilirubin 1.6 mg/dl H 10/24/18 1700 Aspartate Amino Transf (AST/SGOT) 34 U/L 10/24/18 1700 Alanine Aminotransferase (ALT/SGPT) 40 U/L 10/24/18 1700 Alkaline Phosphatase 138 U/L H 10/24/18 1700 Troponin I < 0.012 ng/ml 10/24/18 170 Lactate 0.9 mmol/L 10/24/18 2017 Carbon Dioxide Level 14 mmol/L *L 10/25/18 0506 Blood Urea Nitrogen 91 mg/dl H 10/25/18 0506 Creatinine 3.30 mg/dl H 10/25/18 0506 Calcium Level 8.3 mg/dl L 10/25/18 0506 Total Bilirubin 0.7 mg/dl 10/25/18 0506 Aspartate Amino Transf (AST/SGOT) 28 U/L 10/25/18 0506 Alanine Aminotransferase (ALT/SGPT) 65 U/L H 10/25/18 0506 Alkaline Phosphatase 118 U/L 10/25/18 0506 Carbon Dioxide Level 14 mmol/L *L 10/26/18 0516 Blood Urea Nitrogen 75 mg/dl H 10/26/18 0516 Creatinine 2.40 mg/dl H 10/26/18 0516 Total Bilirubin 0.4 mg/dl 10/26/18 0516 Aspartate Amino Transf (AST/SGOT) 24 U/L 10/26/18 0516 Alanine Aminotransferase (ALT/SGPT) 63 U/L H 10/26/18 0516 Alkaline Phosphatase 134 U/L H 10/26/18 0516 Carbon Dioxide Level 17 mmol/L L 10/27/18 0524 Blood Urea Nitrogen 64 mg/dl H 10/27/18 0524 Creatinine 2.00 mg/dl H 10/27/18 0524 Total Bilirubin 0.4 mg/dl 10/27/18 0524 Aspartate Amino Transf (AST/SGOT) 13 U/L 10/27/18 0524 Alanine Aminotransferase (ALT/SGPT) 62 U/L H 10/27/18 0524 Alkaline Phosphatase 111 U/L 10/27/18 0524 Carbon Dioxide Level 15 mmol/L L 10/28/18 05 Carbon Dioxide Level 17 mmol/L L 10/29/18 05 Blood Urea Nitrogen 45 mg/dl H 10/29/18 0533 Creatinine 1.90 mg/dl H 10/29/18 05 Creatinine 1.90 mg/dl H 10/28/18 05 Blood Urea Nitrogen 51 mg/dl H 10/28/18 0534 Aspartate Amino Transf (AST/SGOT) 13 U/L 10/28/18 0534 Alanine Aminotransferase (ALT/SGPT) 65 U/L H 10/28/18 0534 Alkaline Phosphatase 103 U/L 10/28/18 0534 Albumin 2.0 g/dl L 10/28/18 0534 Calcium Level 7.7 mg/dl L 10/28/18 05 Urine Leukocyte Esterase Moderate H 10/24/18 1731 Urine RBC 44 /HPF 10/24/18 1731 Urine WBC 413 /HPF 10/24/18 1731 Urine WBC Clumps Many /HPF 10/24/18 1731 Urine Squamous Epithelial Cells None /LPF 10/24/18 1731 Urine Bacteria Moderate /HPF H 10/24/18 1731 Urine Mucus None /HPF 10/24/18 1731 Urine Yeast (Budding) Few /HPF H 10/24/18 1731 Stool Occult Blood (IFOB) Negative 10/24/181730 SPEC #: [id number] LILY: 10/24/18 STATUS: COMP REQ #: [id number] RECD: 10/24/[address] [facility] [address]: JOE MAYO SOURCE: ANMOL ENTR: 10/24/[address] [facility] [address]: JAJA YUEN [facility] SPDESC: ORDERED: CULT URINE Procedure Result Verified URINE CULTURE Final 10/26/18 Organism 1 ENTEROBACTER AEROGENES >100,000 COL/ML KOLBY AERLIA M.I.C. RX --------- --- CEFAZOLIN <=4 R CEFTAZIDIME <=1 S CEFTRIAXONE <=1 S CEFEPIME <=1 S CEFOXITIN >=64 R ERTAPENEM <=0.5 S CIPROFLOXACIN <=0.25 S GENTAMICIN <=1 S IMIPENEM 1 S LEVOFLOXACIN <=0.12 S NITROFURANTOIN 64 I PIPERACILLIN/TAZOBACTAM <=4 S TOBRAMYCIN <=1 S TRIMETHOPRIM/SULFAMETHOXAZOLE <=20 S SPEC #: [id number] LILY: 10/24/18 STATUS: COMP REQ #: [id number] RECD: 10/24/[address] [facility] [address]: JOE MAYOP SOURCE: BLOOD ENTR: 10/24/[address] [facility] [address]: JAJA YUENP SPDESC: ORDERED: BCGS, CULT BLOOD Procedure Result Verified BLOOD CULTURE GRAM STAIN Final 10/25/18-07 ANAEROBIC BOTTLE POSITIVE AND AEROBIC BOTTLE POSITIVE GRAM NEGATIVE RODS POSITIVE BLOOD CULTURE GRAM STAIN REPORT [place] LED TO: JILL ELLIS RN DATE/TIME REPORT CALLED: 10/25/18 @ [id number] CALLED BY: VERNA CASAS BLOOD CULTURE Final 10/27/18-1622 Organism 1 ENTEROBACTER AEROGENES GROWTH PRESENT IN BOTH THE AEROBIC AND ANAEROBIC BOTTLES ENT AEROGE M.I.C. RX --------- --- CEFAZOLIN >=64 R CEFTAZIDIME <=1 S CEFTRIAXONE <=1 S CEFEPIME <=1 S CEFOXITIN >=64 R ERTAPENEM <=0.5 S CIPROFLOXACIN <=0.25 S GENTAMICIN <=1 S IMIPENEM 1 S LEVOFLOXACIN <=0.12 S PIPERACILLIN/TAZOBACTAM <=4 S TOBRAMYCIN <=1 S TRIMETHOPRIM/SULFAMETHOXAZOLE <=20 S PATIENT: KURTAUGIE Silva ACCT: [id number] LOC: [facility] U: [id number] AGE/SX: 68/M ROOM: [facility] RE10/24/[address]: STEPHY HUDDLESTON DO : 1950 BED: 282 DIS: STATUS: ADM IN TLOC: ------ ------ SPEC #: [id number] LILY: 10/24/18 STATUS: COMP REQ #: [id number] RECD: 10/24/[address] [facility] [address]: JOE MAYO SOURCE: BLOOD ENTR: 10/24/[address] [facility] [address]: JAJA YUEN SPDESC: ORDERED: BCGS, CULT BLOOD Procedure Result Verified BLOOD CULTURE GRAM STAIN Final 10/25/18-0701 ANAEROBIC BOTTLE POSITIVE AND AEROBIC BOTTLE POSITIVE GRAM NEGATIVE RODS POSITIVE BLOOD CULTURE GRAM STAIN REPORT CALLED TO: JILL ELLIS RN DATE/TIME REPORT CALLED: 10/25/18 @[id number] CALLED BY: VERNA CASAS BLOOD CULTURE Final 10/27/18-0582 Organism 1 ENTEROBACTER AEROGENES GROWTH PRESENT IN BOTH THE AEROBIC AND ANAEROBIC BOTTLES SEE BLOOD CULTURE - ACC.# [id number] FOR SUSCEPTIBILITY TESTING Imaging 10/24/18 CXR - 1. Right-sided central venous catheter tip overlying the distal SVC. No pneumothorax. Condition: Improved Discharge: Home Discharge Instructions Home Meds Reported Medications Labetalol Hcl (LABETALOL HCL) 100 Mg Tablet, 2 TAB PO QDAY 10/25/18 Fenofibrate Nanocrystallized (FENOFIBRATE) 145 Mg Tablet, 1 TAB PO QDAY 10/25/18 Enalapril/Hydrochlorothiazide (ENALAPRIL-HCTZ 10-25 MG TABLET) 1 Each Tablet, 1 TAB PO QDAY 10/25/18 [Leutine] No Conflict Check 10/24/18 [place]-3 Fatty Acids/Fish Oil (FISH OIL 1,000 MG CAPSULE) 1 Each Capsule, 1 EACH PO, CAPSULE 10/24/18 Aspirin (ASPIR 81) 81 Mg Tablet.dr, 81 MG PO QDAY, TAB 10/24/18 Famotidine (Pepcid Ac) 20 Mg Tablet, 20 MG PO PRN, 0 Refills 01/14/09 Gemfibrozil (Lopid) 600 Mg Tab, 600 MG PO DAILY, 0 Refills 01/14/09 Allopurinol (Zyloprim) 300 Mg Tab, 300 MG PO QDAY, 0 Refills 01/14/09 Discontinued Reported Medications Labetalol Hcl (Labetalol Hcl) 100 Mg Tablet, 100 MG PO BID, 0 Refills 01/14/09 Enalapril Maleate (Enalapril Maleate) 20 Mg Tablet, 20 MG PO BID, 0 Refills 01/14/09 Omeprazole (Prilosec) 40 Mg Capsule.dr, 40 MG PO DAILY, 0 Refills 01/14/09 Diet: Regular Activity: As Tolerated Special Instructions: Craig catheter to remain in place until follow up with Dr. Brice. Follow up with Dr. Brice in 1-2 weeks for possibity of removing catheter Follow up with your PCP in 1-2 weeks to check on blood pressure and possibly restarting metoprolol and aspirin. Do not restart Enalapril/HCTZ until done with the antibiotic. CBC and CMP on 11/01 to follow up renal function, anemia and platelet count. No NSAIDs until cleared by PCP Elevate scrotum when lying down. Go to the ER for pain, worsening swelling or redness of the scrotum Copies to: SIMA MATHUR; JAJA YUENP; CHLOE BRICE MD ; Venous Thromboembolism Antithrombotics Is Pt On Any Antithrombotics?: No Problem Qualifiers (1) Urinary tract infection: Urinary tract infection type: site unspecified Hematuria presence: with hematuria Qualified Codes: N39.0 - Urinary tract infection, site not specified; R31.9 - Hematuria, unspecified LAM GOMEZ MD Oct 29, 2018 08:16
--- NOTE | 2018-10-29 08:52 | Miscellaneous Provider Note ---
Miscellaneous Provider Note Note The patient reported that he had shaking chills with dry heaves last night about 5pm. He wasn't febrile, but I wasn't notified of the event. His nausea is improving, but still persistent. No abdominal pain. Afebrile P62 BP 101/69 96% on RA Item Value Date Time Platelet Count 72 K/uL L 10/29/18 05 Neutrophils (%) (Auto) 76.2 % H 10/29/18 05 Lymphocytes (%) (Auto) 13.2 % L 10/29/18 05 Monocytes (%) (Auto) 10.1 % 10/29/18 05 Eosinophils (%) (Auto) 0.2 % L 10/29/18532 White Blood Count 6.4 k/uL 10/29/18 05 Hemoglobin 9.8 g/dL L 10/29/18 05 Hematocrit 29.3 % L 10/29/18 05 Blood Urea Nitrogen 45 mg/dl H 10/29/18 05 Creatinine 1.90 mg/dl H 10/29/18 05 Glomerular Filtration Rate Calc 35.3 10/29/18 05 Whole Blood Glucose 119 mg/DL H 10/29/18 0737 Random Glucose 115 mg/dl H 10/29/18 05 Calcium Level 7.7 mg/dl L 10/29/18 05 Carbon Dioxide Level 17 mmol/L L 10/29/18 05 Sodium Level 137 mmol/L 10/29/18 05 Potassium Level 3.6 mmol/L 10/29/18 05 Chloride Level 113 mmol/L H 10/29/18 05 He was all set for discharge, but when I was giving him discharge instructions, he told me about the rigors event last night. He is afebrile and has a normal WBC. Because of the severity of the sepsis, recent left renal tumor mass removal, and persistent nausea; will watch him another 24 hours and get a non- contrasted CT to look for stones or abscess. He is in agreement with the plan. LAM GOMEZ MD Oct 29, 2018 08:52
[2018-10-29] MEDS: HYDROCORTISONE 100 MG/2 ML IVP SCH (09:26)
[2018-10-29] MEDS: FAMOTIDINE 20 MG TAB PO SCH ×2 (09:26→21:22)
[2018-10-29] MEDS: TRIMETH/SULFA DS 160-800MG TAB PO SCH ×2 (09:26→21:22)
[2018-10-29 11:36] VITALS: BP 113/68
[2018-10-29] MEDS: INSULIN HUM LISPRO 100 UN/ML 3 ML VIAL SUBQ PRN (12:28)
--- NOTE | 2018-10-29 15:23 | RADIOLOGY IMAGING REPORT ---
FACILITY: [facility] - [place] PATIENT NAME: Oscar Vicente : 1950 MR: [id number] V: [id number] EXAM DATE: ORDERING PHYSICIAN: LAM GOMEZ TECHNOLOGIST: Location: [facility] [place] Patient: Oscar Vicente : 1950 Visit/Account:[id number] Date of Sevice: 10/29/2018 EXAMINATION: CT abdomen and pelvis without IV contrast HISTORY: Urosepsis, left renal mass resection TECHNIQUE: Axial CT images of the abdomen and pelvis were obtained without IV contrast, with rios l and sagittal 2D reconstructed images. One of the following dose optimization techniques was utilized in the performance of this exam: Autom ated exposure control; adjustment of the mA and/or kV according to the patient's size; or use of an i terative reconstruction technique. Specific details can be referenced in the facility's radiology C T exam operational policy. COMPARISON: MR abdomen without and with contrast 06/23/2018. FINDINGS: Evaluation of the solid and viscus parenchymal organs is limited without the benefit of IV contrast. Liver: Normal hepatic size and morphology. Gallbladder and bile ducts: Negative. Spleen: Negative. Pancreas: Negative. Adrenal glands: Negative. Kidneys: Surgical changes of a partial left nephrectomy for resection of the small left renal mass a long the lower pole on the prior exam. Normal size and morphology of the remaining left kidney. No di screte perinephric hematoma or fluid collection. Slightly lobular contour of the right kidney with sm all right renal cysts noted on prior MRI. No hydronephrosis. There is mild diffuse perinephric strand ing bilaterally which is nonspecific. Bowel and peritoneum: The small bowel and colon are normal in caliber. No bowel obstruction or evide nce of ileus. Moderate amount of stool along the right colon. There is a small amount of free fluid i n the pelvis. No free intraperitoneal air. Pelvic structures: The urinary bladder is decompressed with a Craig catheter in place. There is m oderate diffuse bladder wall thickening. Moderate prostatic enlargement. Lymph node assessment: Negative. Vessels: Mild vascular calcifications. Normal caliber abdominal aorta. Musculoskeletal: No acute osseous findings. Chronic multilevel degenerative changes along the spine . Body wall: Surgical changes along the anterior abdominal wall without any discrete fluid collection or hematoma. There is mild diffuse soft tissue edema along the abdominal wall. Lung bases: Small bilateral layering pleural effusions with adjacent atelectasis in the lung bases. IMPRESSION: 1. Surgical changes of a partial left nephrectomy. Unremarkable postsurgical appearance by noncontras t CT imaging. No perinephric fluid collection or hematoma. 2. Small amount of nonspecific free fluid in the pelvis. 3. The urinary bladder is decompressed with a Craig catheter in place. There is moderate diffuse blad ayanna wall thickening. This could be related to chronic bladder outlet obstruction and/or cystitis. The re is moderate prostatic enlargement. 4. No other acute intra-abdominal findings. 5. Small layering pleural effusions with bibasilar atelectasis. Report Dictated By: Santiago Griffin MD at 10/29/2018 3:10 PM Report E-Signed By: Santiago Griffin MD at 10/29/2018 3:17 PM WSN:[id number]
[2018-10-29 18:44] VITALS: BP 123/80
[2018-10-29 23:15] VITALS: BP 131/81
[2018-10-30 03:58] VITALS: BP 112/79
[2018-10-30 05:54] LABS: PLATELET COUNT, AUTOMATED 82 K/uL (150-450)
[2018-10-30 07:21] VITALS: BP 130/75
[2018-10-30] MEDS: TRIMETH/SULFA DS 160-800MG TAB PO SCH (08:40)
[2018-10-30] MEDS: FAMOTIDINE 20 MG TAB PO SCH (08:40)
[2018-10-30 08:46] VITALS: BP 133/78
--- NOTE | 2018-10-30 09:25 | Miscellaneous Provider Note ---
Miscellaneous Provider Note Note The patient was going to be discharged on 10/[address] Lewis but then noted he had some chills and nausea. Labs were done and showed a normal WBC. CT of abdomen/pelvis showed no acute unexpected findings. His nausea was felt to be secondary to taking his meds on an empty.stomach. He took his meds this am after breakfast and is feeling much better. He is anxious to go home. Will DC today. He is to return to the ER if he has worsening of symptoms. He is to have his blood drawn on Wednesday of next week and will follow up with Dr. Brice, Cecilia Gibbs, [facility], and the [facility] as previously scheduled. ASA HEWITT MD Oct 30, 2018 09:25
== END 2018-10-30 11:48 | disposition home or self-care (01) | DRG 871 ==
LOC: ER 16:49 → ICU 18:37 → MED 10-26 18:30
PROVIDERS: ADMIT Family Medicine; ATTEND Family Medicine
PROC: 02HV33Z Insertion of Infusion Device into Superior Vena Cava, Percutaneous Approach (ICD-10-PCS; principal; 2018-10-24)
DX: A41.89 Other specified sepsis (principal); R65.21 Severe sepsis with septic shock; N39.0 Urinary tract infection, site not specified; N17.9 Acute kidney failure, unspecified; N13.8 Other obstructive and reflux uropathy; N40.1 Benign prostatic hyperplasia with lower urinary tract symptoms; K21.9 Gastro-esophageal reflux disease without esophagitis; E11.22 Type 2 diabetes mellitus with diabetic chronic kidney disease; I12.9 Hypertensive chronic kidney disease with stage 1 through stage 4 chronic kidney disease, or unspecified chronic kidney disease; N18.9 Chronic kidney disease, unspecified; R31.9 Hematuria, unspecified; E78.00 Pure hypercholesterolemia, unspecified; M1A.9XX0 Chronic gout, unspecified, without tophus (tophi); R53.1 Weakness; Z85.528 Personal history of other malignant neoplasm of kidney
CPT/HCPCS: 36415; 36416; 71045; 74176; 81001; 82040; 82150; 82247; 82274; 82310; 82374; 82435; 82565; 82947; 82948; 83605; 83690; 84075; 84132; 84155; 84295; 84450; 84460; 84484; 84520; 85025; 86850; 86900; 86901; 87040; 87077; 87088; 87186; 93005; 96361; 96365; 96372; 96375; 99285; A4340; J0696; J1720; J7030; J7040; J7060; J7120

== ENCOUNTER → 2018-11-01 | Outpatient (CLI) | payer MEDICARE ==
[~2018-11-01] MED LIST changes: +ASPI-1471 PO; +ENAL1TAB35 PO; +FENO145T36 PO; +LABE100T2 PO; +OMEG-11 PO; +SULF1TAB24 PO; +[UNRECOGNIZED DRUG - OTHER]
[2018-11-01 11:21] LABS: PLATELET COUNT, AUTOMATED 209 K/uL (150-450)
== END ==
LOC: LAB 10:18
PROVIDERS: ATTEND Nurse Practitioner Family
DX: D64.9 Anemia, unspecified (principal); D69.6 Thrombocytopenia, unspecified
CPT/HCPCS: 36415; 82040; 82247; 82310; 82374; 82435; 82565; 82947; 84075; 84132; 84155; 84295; 84450; 84460; 84520; 85025

== ENCOUNTER → 2018-11-07 | Outpatient (CLI) | payer MEDICARE ==
[2018-11-07 15:31] LABS: PLATELET COUNT, AUTOMATED 344 K/uL (150-450)
== END ==
LOC: LAB 14:54
PROVIDERS: ATTEND Nurse Practitioner Family
DX: E11.9 Type 2 diabetes mellitus without complications (principal); N18.2 Chronic kidney disease, stage 2 (mild); D64.9 Anemia, unspecified
CPT/HCPCS: 36415; 82040; 82247; 82310; 82374; 82435; 82565; 82947; 83036; 84075; 84132; 84155; 84295; 84450; 84460; 84520; 85025

== ENCOUNTER → 2018-11-09 | Outpatient (CLI) | payer MEDICARE | LOC: LAB 13:23 | PROVIDERS: ATTEND Nurse Practitioner Family | DX: N18.9 Chronic kidney disease, unspecified (principal); E87.5 Hyperkalemia | CPT/HCPCS: 36415; 82040; 82247; 82310; 82374; 82435; 82565; 82947; 84075; 84132; 84155; 84295; 84450; 84460; 84520 ==

== ENCOUNTER → 2018-11-11 | Outpatient (CLI) | payer MEDICARE ==
[2018-11-11 10:16] LABS: PLATELET COUNT, AUTOMATED 275 K/uL (150-450)
== END ==
LOC: LAB 09:31
PROVIDERS: ATTEND Nurse Practitioner Family
DX: N18.3 Chronic kidney disease, stage 3 (moderate) (principal); D64.9 Anemia, unspecified
CPT/HCPCS: 36415; 82310; 82374; 82435; 82565; 82947; 84132; 84295; 84520; 85025

== ENCOUNTER → 2018-11-14 | Outpatient (CLI) | payer MEDICARE | LOC: LAB 09:55 | PROVIDERS: ATTEND Nurse Practitioner Family | DX: E87.5 Hyperkalemia (principal); N18.3 Chronic kidney disease, stage 3 (moderate) | CPT/HCPCS: 36415; 82310; 82374; 82435; 82565; 82947; 84132; 84295; 84520 ==

== ENCOUNTER → 2018-11-15 | Outpatient (CLI) | payer MEDICARE | LOC: LAB 11:07 | PROVIDERS: ATTEND Nurse Practitioner Family | DX: E87.6 Hypokalemia (principal); N18.4 Chronic kidney disease, stage 4 (severe) | CPT/HCPCS: 36415; 82040; 82247; 82310; 82374; 82435; 82565; 82947; 84075; 84132; 84155; 84295; 84450; 84460; 84520 ==

== ENCOUNTER → 2018-11-17 | Outpatient (CLI) | payer MEDICARE | LOC: LAB 10:38 | PROVIDERS: ATTEND Nurse Practitioner Family | DX: N18.4 Chronic kidney disease, stage 4 (severe) (principal) | CPT/HCPCS: 36415; 82040; 82247; 82310; 82374; 82435; 82565; 82947; 84075; 84132; 84155; 84295; 84450; 84460; 84520 ==

== ENCOUNTER → 2018-11-18 | Outpatient (CLI) | payer MEDICARE | LOC: LAB 12:07 | PROVIDERS: ATTEND Nurse Practitioner Family | DX: E87.5 Hyperkalemia (principal); N18.4 Chronic kidney disease, stage 4 (severe) | CPT/HCPCS: 36415; 82040; 82247; 82310; 82374; 82435; 82565; 82947; 84075; 84132; 84155; 84295; 84450; 84460; 84520 ==